=== PATIENT | female | born 1960 | race Caucasian/White ===

== ENCOUNTER 2019-04-24 13:25 | Emergency (ER) | payer BC ==
--- NOTE | 2019-04-24 13:41 | UC ---
Throat Pain/Nasal Kevan HPI - HPI Summary HPI Summary: Patient is a 58-year-old female presenting with URI symptoms that began 3 days ago and chest congestion that she states began yesterday. Patient states nasal congestion has mostly resolved but her cough is persistent and keeping her up at night. Cough is nonproductive. Patient denies fever, chills, and headaches. Denies SOB and wheezing. Denies h/o asthma, COPD, and other lung issues. Patient states she has been taking advil cough and cold with little relief. - History of Current Complaint Stated Complaint: COUGH, CONGESTION Hx Obtained From: Patient Onset/Duration: Gradual Onset, Lasting Days - Allergies/Home Medications Allergies/Adverse Reactions: Allergies Allergy/AdvReac Type Severity Reaction Status Date / Time No Known Allergies Allergy Verified 04/24/19 13:43 Home Medications: Home Medications Rosuvastatin Calcium [Crestor] 5 mg PO DAILY 04/24/19 [History Confirmed ] PMH/Surg Hx/FS Hx/Imm Hx Endocrine History: Dyslipidemia - Family History Known Family History: Positive: Unknown, Non-Contributory - Social History Lives: With Family Alcohol Use: None Substance Use Type: None Smoking Status (MU): Unknown if Ever Smoked Review of Systems All Other Systems Reviewed And Are Negative: Yes Constitutional: Positive: Negative. Negative: Fever, Chills, Fatigue ENT: Positive: Sinus Congestion. Negative: Sore Throat, Ear Ache, Nasal Discharge, Sinus Pain/Tenderness Respiratory: Positive: Cough - dry. Negative: Shortness Of Breath Cardiovascular: Positive: Negative Gastrointestinal: Positive: Negative Neurological: Positive: Negative Physical Exam Triage Information Reviewed: Yes Appearance: Well-Appearing, No Pain Distress, Well-Nourished Vital Signs: Vital Signs (72 hours) 04/24/19 13:40 Temperature 98.2 F Pulse Rate 58 Respiratory 18 Rate Blood Pressure 148/83 (mmHg) O2 Sat by Pulse 98 Oximetry Vital Signs Reviewed: Yes Eyes: Positive: Conjunctiva Clear ENT: Positive: Hearing grossly normal, Pharynx normal, TMs normal, Uvula midline. Negative: Nasal congestion, Nasal drainage, Sinus tenderness Neck exam: Normal Neck: Positive: Supple, Nontender, No Lymphadenopathy Respiratory Exam: Normal Respiratory: Positive: Lungs clear, Normal breath sounds, No respiratory distress. Negative: Crackles, Rhonchi, Stridor Cardiovascular Exam: Normal Cardiovascular: Positive: RRR Neurological: Positive: Alert Throat Pain/Nasal Course/Dx - Course Course Of Treatment: Discussed viral bronchitis and symptomatic treatment, including use of tessalon perles and humidifier at night. Also instructed patient to use flonase for nasal congestion relief. Instructed patient to follow up with PCP for persistent symptoms. Patient voiced understanding and agreed with treatment plan. - Differential Dx/Diagnosis Provider Diagnosis: Acute bronchitis, Upper respiratory infection Discharge ED - Sign-Out/Discharge Documenting (check all that apply): Patient Departure All imaging exams completed and their final reports reviewed: No Studies - Discharge Plan Condition: Stable Disposition: HOME Prescriptions: Benzonatate CAP* [Tessalon 100 MG CAP*] 100 mg PO TID PRN #[id number] cap PRN Reason: Cough Patient Education Materials: Acute Bronchitis (ED) Referrals: Earle Constantino MD [Primary Care Provider] - If Needed Additional Instructions: As discussed, take the Tessalon Perles as prescribed to help alleviate your cough. You may continue to take over the counter cough and cold medications for your cold symptoms. You may use Flonase nasal spray as directed for symptomatic relief. You may take ibuprofen as directed for pain relief. Get plenty of rest and fluids. Follow up with your primary care doctor if your symptoms worsen or do not resolve within 10 days. - Billing Disposition and Condition Condition: STABLE Disposition: Home
[2019-04-24 13:43] VITALS: BP 148/83
== END 2019-04-24 14:02 | disposition home or self-care (01) ==
LOC: UCCORT 13:25
DX: J06.9 Acute upper respiratory infection, unspecified (principal); J20.9 Acute bronchitis, unspecified; E78.5 Hyperlipidemia, unspecified; Z79.899 Other long term (current) drug therapy
CPT/HCPCS: 99202; G0463